=== PATIENT | male | born 1960 | race Caucasian/White ===

== ENCOUNTER 2022-05-17 14:19 | Inpatient (IN) ==
[2022-05-17 15:11] LABS: ABS Lymphocytes 1.5 10^3/ul (1.0-4.8); ABS Monocytes 0.6 10^3/ul (0-0.8); ABS Neutrophils 6.2 10^3/ul (1.5-7.7); Hematocrit 45 % (42-52); Hemoglobin 15.3 g/dL (14.0-18.0); Lymphocyte % 18.5 %; Mean Corpuscular HGB Conc 34 g/dL (31-36); Mean Corpuscular Hemoglobin 31 pg (27-31); Mean Corpuscular Volume 90 fL (80-94); Mean Platelet Volume 7.3 fL (7.4-10.4); Nucleated Red Blood Cells % 0.1; Platelet Count 227 10^3/uL (150-450); Red Cell Distribution Width 13 % (10-15); White Blood Count 8.3 10^3/uL (3.5-10.8)
[2022-05-17 15:20] LABS: Urine Appearance Clear; Urine Bilirubin Negative (Negative); Urine Color Yellow; Urine Glucose Negative (Negative); Urine Ketones Negative (Negative); Urine Specific Gravity 1.025 (1.005-1.030)
[2022-05-17 15:21] LABS: Urine Blood Negative (Negative); Urine Nitrite Negative (Negative); Urine Protein Negative (Negative); Urine Urobilinogen 0.2 (Negative) (Negative); Urine pH 5.5 (5.0-9.0)
[2022-05-17 15:41] LABS: Urine Benzodiazepine Screen None Detected (None Detect); Urine Cannabinoids Screen None Detected (None Detect); Urine Opiates Screen None Detected (None Detect)
[2022-05-17 15:57] LABS: ALT 19 U/L (7-52); AST 16 U/L (13-39); Albumin 4.7 g/dL (3.2-5.2); Albumin/Globulin Ratio 2.2 (1-3); Alcohol, S < 13 mg/dL (<13); Alkaline Phosphatase 55 U/L (35-149); Anion Gap 7 mmol/L (2-11); Blood Urea Nitrogen 17 mg/dL (6-24); CO2 Carbon Dioxide 23 mmol/L (22-32); Calcium 9.8 mg/dL (8.6-10.3); Chloride 107 mmol/L (101-111); Globulin 2.1 g/dL (2-4); Glucose 130 mg/dL (70-100); Salicylate < 2.50 mg/dL (<30); Sodium 137 mmol/L (135-145); Total Protein 6.8 g/dL (6.4-8.9); eGFR CKD-EPI 80.8 (>60)
[2022-05-17 16:10] LABS: TSH Ultra Thyroid Stim Horm 0.94 mcIU/mL (0.34-5.60)
[2022-05-17 16:14] LABS: Acetaminophen < 15 mcg/mL
[2022-05-17] MEDS ORDERED: Al Hydrox/Mg Hydrox/Simet LIQ 30 ML UDC PO PRN (19:17)
[2022-05-18 09:00] LABS: Vitamin B12 390 pg/mL (180-914)
[2022-05-18 09:03] LABS: Vitamin D Total 25(OH) 42.4 ng/mL (20-50)
[2022-05-18 09:55] LABS: Urine Benzodiazepine Screen None Detected (None Detect); Urine Buprenorphine Screen None Detected (None Detect); Urine Cannabinoids Screen None Detected (None Detect); Urine Fentanyl Screen None Detected (None Detect); Urine Hydrocodone Screen None Detected (None Detect); Urine Opiates Screen None Detected (None Detect)
[2022-05-18] MEDS: Vitamin THERAPEUTIC TAB PO SCH (12:28)
[2022-05-18] MEDS: CMC:Desvenlafaxine 50 mg TAB (NF) PO SCH (12:28)
[2022-05-19] MEDS: CMC:Desvenlafaxine 50 mg TAB (NF) PO SCH (08:29)
[2022-05-19] MEDS: Vitamin THERAPEUTIC TAB PO SCH (08:29)
[2022-05-20 07:56] LABS: HDL Cholesterol 47.5 mg/dL
[2022-05-20] MEDS: Vitamin THERAPEUTIC TAB PO SCH (08:44)
[2022-05-20] MEDS: CMC:Desvenlafaxine 50 mg TAB (NF) PO SCH (08:44)
[2022-05-21] MEDS: CMC:Desvenlafaxine 50 mg TAB (NF) PO SCH (08:41)
[2022-05-21] MEDS: Vitamin THERAPEUTIC TAB PO SCH (08:42)
[2022-05-22] MEDS: Vitamin THERAPEUTIC TAB PO SCH (09:02)
[2022-05-22] MEDS: CMC:Desvenlafaxine 50 mg TAB (NF) PO SCH (09:02)
[2022-05-23 07:25] VITALS: BP 125/78
[2022-05-23] MEDS: Vitamin THERAPEUTIC TAB PO SCH (08:14)
[2022-05-23] MEDS: CMC:Desvenlafaxine 50 mg TAB (NF) PO SCH (08:14)
== END 2022-05-23 12:50 | disposition home or self-care (01) | DRG 885 ==
LOC: ED 14:19 → BSU 17:49
PROVIDERS: ADMIT Psychiatry & Neurology Psychiatry; ATTEND Psychiatry & Neurology Psychiatry